=== PATIENT | male | born 2000 ===

== ENCOUNTER 2022-08-16 10:27 | Day surgery (SDC) | payer SELFPAY ==
[~2022-08-16] VITALS: Ht 182.9 cm; Wt 111.6 kg
[~2022-08-16 10:27] MED LIST: NORCO 325 MG-51 TAB PO
[2022-08-16] MEDS ORDERED: ROXICODONE 55 MG/TAB PO (10:53)
[2022-08-16 10:54] VITALS: BP 118/69; PULSE 77; TEMP 98.7
[2022-08-16 16:10] VITALS: BP 118/67; PULSE 76; TEMP 97.6
--- NOTE | 2022-08-16 16:10 | NUR ---
REPORT RECEIVED FROM FARA DIAZ. PT TRANSPORTED TO [facility]IA [facility]; A&0X3. HEART REGULAR, LUNG SOUNDS CLEAR BILATERALLY. R HAND ELEVATED ON PILLOWS WITH ICE; SKIN PINK, WARM TO TOUCH, +SENSATION AND + MOVEMENT IN FIRST 4 DIGITS THAT ARE VISIBLE THROUGH DRESSING. PT TOLERATING PO LIQUIDS AND PUDDING WELL. CALL FELDER WITHIN REACH; SAFETY MAINTAINED.
[2022-08-16 16:25] VITALS: BP 112/79; PULSE 74
--- NOTE | 2022-08-16 16:34 | NUR ---
1625 - PT states pain is increasing, from 01/17 to 03/19. PT A&Ox3 but drowsy; PO medication administered per request. PT verbalized understanding side effects. PT tolerating snack and drink well; denies current nausea. Call topete within reach if needed and side rails x2 remain.
[2022-08-16 16:40] VITALS: BP 113/70; PULSE 65
--- NOTE | 2022-08-16 16:47 | NUR ---
DISCHARGE INSTRUCTIONS GIVEN TO PT; PT CALLED [facility] FOR [facility]. QUESTIONS ANSWERED; UNDERSTANDING VERBALIZED.
--- NOTE | 2022-08-16 16:48 | NUR ---
PT VOIDED WITHOUT DIFFICULTY AT THIS TIME.
--- NOTE | 2022-08-16 16:49 | NUR ---
PT GETTING DRESSED AT THIS TIME.
--- NOTE | 2022-08-16 16:55 | NUR ---
PT DISCHARGED OUT OF DEPT VIA WC WITH PUBLIC WORKS INSPECTOR PRESENT; SAFETY MAINTAINED.
== END 2022-08-16 16:55 | disposition home or self-care (01) ==
LOC: SDCO 10:27
DX: S62.314A Displaced fracture of base of fourth metacarpal bone, right hand, initial encounter for closed fracture (principal); S62.316A Displaced fracture of base of fifth metacarpal bone, right hand, initial encounter for closed fracture; F17.210 Nicotine dependence, cigarettes, uncomplicated; W22.8XXA Striking against or struck by other objects, initial encounter
CPT/HCPCS: C1713; J0690; J1100; J1170; J2405; J2704; J3010; J7120